=== PATIENT | male | born 1960 | race Caucasian/White ===

== ENCOUNTER 2020-07-18 08:59 | Emergency (ER) | payer BC, SELFPAY ==
--- NOTE | ~2020-07-18 | XR_ITS ---
XR knee RT min 4V 07/18/2020 11:03 INDICATION: Right knee pain PROCEDURE: 4 views right knee COMPARISON: No prior studies for comparison. FINDINGS: Fracture, dislocation or subluxation is not identified. No significant joint effusion. The soft tissues appear within normal limits. No foreign bodies are identified. IMPRESSION: 1: NO ACUTE BONE OR JOINT ABNORMALITY IDENTIFIED. Reviewed, dictated and finalized at location A. ULATION CHEMIST
--- NOTE | ~2020-07-18 | US_ITS ---
EXAMINATION:US venous doppler LE RT INDICATION:Calf pain TECHNIQUE: Multiple grayscale, color flow and Doppler images of the right lower extremity deep venous systems were obtained and reviewed. COMPARISON:No prior studies for comparison. FINDINGS: The common femoral, superficial femoral and popliteal veins demonstrate normal respiratory variation, augmentation and compressibility. Color flow is also seen within the posterior tibial, pe roneal, greater saphenous and profunda veins. IMPRESSION: 1: No lower extremity deep venous thrombosis. Reviewed, dictated and finalized at location A. [employer]OR PAID [employer]IA
--- NOTE | ~2020-07-18 | CT_ITS ---
EXAMINATION: CT brain wo con DATE: 07/18/2020 09:46 INDICATION: Dizziness. TECHNIQUE: Computed tomography (CT) of the head was performed without intravenous contrast. The mA wa s adjusted according to patient size. Iterative reconstruction technique was employed. The dose-lengt h product was 605.33 mGy-cm. COMPARISON: None FINDINGS: There is no intracranial hemorrhage, acute infarction, or abnormal intracranial mass lesion . There are scattered areas of low attenuation in the cerebral white matter. The ventricles are kallie l in size. The orbits are normal. There is mild mucosal thickening in the paranasal sinuses. The mast oid air cells are normal. IMPRESSION: 1. Mild nonspecific cerebral white matter disease, which likely represents chronic small vessel ische jb disease. Reviewed, dictated and finalized at location A. ER SUPERIOR IMPRESSION: 1. 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
--- NOTE | 2020-07-18 09:06 | ECG_ITS ---
Measurements Intervals [place] Rate: 82 P: 56 NM: 158 QRS: 95 QRSD: 109 T: 52 QT: 380 QTc: 445 Interpretive Statements SINUS RHYTHM RIGHT AXIS DEVIATION DELAYED PRECORDIAL R/S TRANSITION BASELINE ARTIFACT- I, II, V6 BORDERLINE ECG Electronically Signed On 07-18-2020 9:18:20 [employer] by Dhruv Mac D.O.
[2020-07-18 09:15] LABS: Glucose Point of Care 136 (65-105)
--- NOTE | 2020-07-18 09:15 | PC.NURSE ---
Blood glucose was 136 at 09:13
[2020-07-18 09:17] VITALS: BP 167/90; PULSE 83; RESP 18; TEMP 36.4; TEMP 36.8; O2SAT 97
[2020-07-18 09:24] LABS: Basophils Absolute Auto 0.2 K/mm3 (0.0-0.1); Basophils Percent Auto 1.3 % (0.2-1.2); Eosinophils Absolute Auto 0.2 K/mm3 (0-0.3); Eosinophils Percent Auto 2.2 % (0-4.4); Hematocrit 44.9 % (42.0-52.0); Hemoglobin 15.3 g/dL (14.0-18.0); Immature Granulocyte Absolute 0.04 K/mm3 (0.00-0.031); Immature Granulocyte Percent A 0.4 % (0-0.5); Lymphocytes Absolute Auto 2.44 K/mm3 (0.9-3.2); Lymphocytes Percent Auto 21.9 % (18.3-44.2); Mean Corpuscular HGB Conc 34.1 g/dl (32-36); Mean Corpuscular Hemoglobin 30.2 pg (26-34); Mean Corpuscular Volume 88.6 fl (80-100); Mean Platelet Volume 8.4 fl (7.4-10.4); Monocytes Absolute Auto 0.9 K/mm3 (0.1-0.6); Neutrophils Absolute Auto 7.4 K/mm3 (1.3-6.7); Neutrophils Percent Auto 66.2 % (45.5-73.1); Platelet Count Result 281 k/mm3 (150-375); Red Blood Count 5.07 M/mm3 (4.6-6.20); White Blood Count 11.1 K/mm3 (4.5-10.0)
--- NOTE | 2020-07-18 09:25 | ED.GENADULT ---
HPI - General Adult General Chief complaint: Neuro Symptoms/Deficit Stated complaint: DIZZY, RT LEG FEELS DIFFERENT Time Seen by Provider: 07/18/20 09:09 Source: RN notes reviewed History of Present Illness HPI narrative: Patient presents to emergency department from home for multiple complaints. Patient states that for the past 3 days he has been having intermittent episodes of feeling lightheaded. States the episodes last several minutes then resolve he denies any other neurologic deficits with these other than sometimes feeling out of body states currently has no dizziness she denies any numbness or tingling in the extremities and denies any facial droop or trouble speaking. Patient states also over the past 2 days he has had pain over his right medial calf going up into his right medial thigh he denies any trauma or injury states pain will increase with extension of the knee he has any fevers or chills chest pain shortness of breath abdominal pain nausea vomiting diarrhea or any other symptoms Review of Systems Review of Systems: Narrative: Gen.: Denies fevers or chills Eyes: Denies eye pain or visual change ENT: Denies congestion Respiratory: Denies shortness of breath or cough CV: Denies chest pain or palpitations GI: Denies abdominal pain nausea, emesis or diarrhea denies burning, urgency, frequency or hematuria Musculoskeletal: Reports right leg pain Neuro: See HPI Skin: Denies rash Except as documented, all other systems reviewed and negative [facility] Past Medical History Medical History (Updated 07/18/20 @ 12:34 by Jonathan Walker DO) Patient denies significant medical history Social History Social History (Updated 07/18/20 @ 12:29 by Jonathan Walker DO) Smoking status: Never smoker Exam Narrative: Exam Narrative: APPEARANCE: No acute distress, nontoxic, resting in bed HEENT: Normocephalic, atraumatic, OMM, EYES: PERRL, EOMI NECK: Supple, nontender, full range of motion without pain, no meningismus RESPIRATORY: No respiratory distress, clear to auscultation bilaterally with no rhonchi wheezing or rales CARDIOVASCULAR: RRR s murmur ABDOMINAL: Soft, nontender, nondistended MUSCULOSKELETAL: Moves all extremities. No clubbing, cyanosis or edema. Tender to palpation of the right medial distal thigh right medial knee and right medial calf no swelling no overlying erythema or ecchymosis full flexion-extension of the right knee with pain with full extension no tenderness of the ankle or hip dorsalis pedis pulse 2+ neurovascular intact NEURO: A and O ?3, following commands, speech normal, cranial nerves II through XII grossly intact,muscle strength 5 out of 5 bilateral upper and lower extremities SKIN:: Warm, dry. Normal Color PSYCHIATRIC: Normal affect/mood Course Course Emergency Course: Patient denies any neurological symptoms while in ED Discussed with patient results of workup and diagnosis. Discussed need for follow-up with primary care, proper use of medication, and reasons to return to the emergency department. Patient understands and agrees to current treatment plan Vital Signs Vital signs: Vital Signs Temperature 98.2 F 07/18/20 09:17 Pulse Rate 83 07/18/20 09:17 Respiratory Rate 18 07/18/20 09:17 Blood Pressure 167/90 H 07/18/20 09:17 Pulse Oximetry 97 07/18/20 09:17 Temperature 98.2 F 07/18/20 09:17 Pulse Rate 92 07/18/20 10:43 Respiratory Rate 18 07/18/20 10:43 Blood Pressure 119/61 07/18/20 10:43 Pulse Oximetry 99 07/18/20 10:43 Medical Decision Making [facility] Narrative Medical decision making narrative: Patient with leg pain of right medial leg Signs of infection no blood clot seen on ultrasound pain worse with movement suspect muscle strain patient also with intermittent episodes of dizziness CT scan shows no acute process lab work was within normal limits patient hydrated in ED will discharge with follow-up with PCP Vital Signs Vital Signs: Vital Signs Te
[2020-07-18 09:34] LABS: INR 0.9; Prothrombin Time 12.7 Seconds (11.1-14.7)
[2020-07-18 09:35] LABS: Partial Thromboplastin Time 27.4 SECONDS (22.3-36.8)
[2020-07-18 09:39] LABS: Anion Gap 8 mmol/L (8-16); Blood Urea Nitrogen 11 mg/dL (9-20); Calcium 9.1 mg/dL (8.4-10.2); Carbon Dioxide 25 mmol/L (22-30); Chloride 103 mmol/L (98-107); Estimated CRCL calculation 104 ml/min; Estimated Glomerular Filt Rate > 60; Glucose 119 mg/dL (75-110); Potassium 4.1 mmol/L (3.4-5.0); Sodium 136 mmol/L (137-145)
[2020-07-18 09:50] LABS: Troponin I < 0.012 ng/mL (0.000-0.034)
[2020-07-18 10:18] VITALS: BP 125/77; PULSE 68
[2020-07-18 10:19] VITALS: BP 124/84; PULSE 73
[2020-07-18 10:20] VITALS: BP 133/85; PULSE 74
[2020-07-18 10:43] VITALS: BP 119/61; PULSE 92; RESP 18; O2SAT 99
[2020-07-18 12:35] VITALS: BP 142/84; PULSE 82; RESP 16; O2SAT 97
== END 2020-07-18 12:54 | disposition home or self-care (01) ==
PROVIDERS: Emergency Provider Emergency Medicine; PCP Family Medicine
DX: S86.111A Strain of other muscle(s) and tendon(s) of posterior muscle group at lower leg level, right leg, initial encounter (principal); X58.XXXA Exposure to other specified factors, initial encounter
CPT/HCPCS: 36415; 70450; 73564; 80048; 82948; 84484; 85025; 85610; 85730; 93005; 93971; 99284

== ENCOUNTER 2021-05-01 03:32 | Emergency (ER) | payer BC, SELFPAY ==
[2021-05-01] VITALS (19 sets, daily range): BP systolic 112–135; BP diastolic 65–83; PULSE 62–84; RESP 12–21; TEMP 36.4; O2SAT 95–98
--- NOTE | ~2021-05-01 | CT_ITS ---
EXAMINATION: CT abdomen pelvis w con DATE: 05/01/2021 05:28 INDICATION: Generalized abdominal pain. Nausea and vomiting. TECHNIQUE: Computed tomography (CT) of the abdomen and pelvis was performed with 100 mL Omnipaque 350 intravenous contrast. Automated exposure control and iterative reconstruction technique were employe d. The dose-length product was 547.35 mGy-cm. COMPARISON: None. FINDINGS: The visualized portions of the lung bases demonstrate mild atelectasis. There is a small ri ght posterior diaphragmatic hernia containing fat. No pleural effusion. The heart size is normal. No pericardial effusion. There are coronary artery calcifications. There are cysts in the liver measurin g up to 3.0 cm. The gallbladder, spleen, pancreas, adrenal glands, and kidneys are normal. The prosta te is mildly enlarged. There is diverticulosis of the colon without evidence of diverticulitis. The a ppendix is not visualized. There is desiccated stool in the ileum. There is an anastomosis in small b owel. There is a 3.0 cm fusiform aneurysm of infrarenal aorta. There is fat stranding at L2-L3 betwee n the spine and aorta. There are no pathologically enlarged lymph nodes. There is no free intraperito kennedy fluid. There are changes of ventral hernia repair. There is severe lower lumbar spondylosis. IMPRESSION: 1. 3.0 cm fusiform aneurysm of infrarenal aorta. Fat stranding at L2-L3 between the spine and aorta, consistent with inflammation. The differential diagnosis includes aortic leak/rupture. Reviewed, dictated and finalized at location A.
[2021-05-01 04:13] LABS: Basophils Absolute Auto 0.1 K/mm3 (0.0-0.1); Basophils Percent Auto 0.8 % (0.2-1.2); Eosinophils Percent Auto 0.2 % (0-4.4); Hematocrit 42.8 % (42.0-52.0); Hemoglobin 14.7 g/dL (14.0-18.0); Immature Granulocyte Absolute 0.08 K/mm3 (0.00-0.031); Immature Granulocyte Percent A 0.6 % (0-0.5); Lymphocytes Absolute Auto 1.19 K/mm3 (0.9-3.2); Lymphocytes Percent Auto 8.7 % (18.3-44.2); Mean Corpuscular HGB Conc 34.3 g/dl (32-36); Mean Corpuscular Hemoglobin 30.8 pg (26-34); Mean Corpuscular Volume 89.7 fl (80-100); Mean Platelet Volume 8.6 fl (7.4-10.4); Monocytes Absolute Auto 0.6 K/mm3 (0.1-0.6); Neutrophils Absolute Auto 11.7 K/mm3 (1.3-6.7); Neutrophils Percent Auto 85.7 % (45.5-73.1); Platelet Count Result 317 k/mm3 (150-375); Red Blood Count 4.77 M/mm3 (4.6-6.20); Red Cell Distribution Width 13.2 % (11.5-14.5); White Blood Count 13.6 K/mm3 (4.5-10.0)
[2021-05-01 04:55] LABS: Alanine Aminotransferase 15 U/L (4-50); Albumin Level 4.4 g/dL (3.5-5.1); Alkaline Phosphatase 108 U/L (38-126); Anion Gap 6 mmol/L (8-16); Aspartate Amino Transferase 21 U/L (17-59); Bilirubin,Total 0.6 mg/dL (0.2-1.3); Blood Urea Nitrogen 18 mg/dL (9-20); Calcium 9.8 mg/dL (8.4-10.2); Carbon Dioxide 26 mmol/L (22-30); Chloride 102 mmol/L (98-107); Estimated Glomerular Filt Rate > 60; Glucose 207 mg/dL (65-110); Lipase 74 U/L (23-300); Sodium 134 mmol/L (137-145)
--- NOTE | 2021-05-01 05:00 | ED.ABDPAIN ---
HPI - Abdominal Pain General Chief Complaint: Abdominal Pain Stated Complaint: abd pain Time Seen by Provider: 05/01/21 04:53 Source: patient and family Mode of arrival: ambulatory Limitations: no limitations History of Present Illness HPI narrative: This is a 60 year old male who presents for evaluation of mid abdominal pain. He developed pain on Saturday and it has continued to worsen. Pain is constant and it radiates to his back. He states when he tries to lay down he develops worsen pain and he has nausea and vomiting. His last bowel movement was 3 hours ago and it is loose. He reports subjective fever and chills. He states pain feels similar to previous times he had infected hernia. He reports having hernia repair years ago and he had to have multiple surgeries to remove mesh. His last surgery was 3 years ago . Denies urinary issues. Related Data Home Medications Medication Instructions Recorded Confirmed No Home Medications 05/01/21 05/01/21 Allergies Allergy/AdvReac Type Severity Reaction Status Date / Time silver sulfadiazine Allergy Unknown Verified 05/01/21 03:46 [From [facility]] Review of Systems Review of Systems: All systems reviewed & are unremarkable except as noted in HPI and below PMFSH Past Medical History Medical History (Updated 05/01/21 @ 07:46 by Mago Murray MD) Patient denies significant medical history Surgical History Surgical History (Updated 05/01/21 @ 05:04 by Mago Murray MD) H/O ventral hernia repair Social History Social History (Updated 07/18/20 @ 12:29 by Jonathan Walker DO) Smoking status: Never smoker Exam Const: General: alert Orientation/consciousness: patient oriented x3 Other: appears to be in pain, moanig Resp: Effort & Inspection: normal respiratory effort and no retractions Auscultation: clear to auscultation bilaterally Cardio: Rate: regular rate Rhythm: regular rhythm Heart sounds: no murmurs GI: GI Palp: Yes Soft to palpation, Yes Tenderness to palpation present (GI) (Diffuse), No Guarding due to palpation present (GI) and No Rigid due to palpation Auscultation: Hypoactive bowel sounds present Skin: General skin exam: normal color Rashes: no rashes Neuro: General: patient oriented x3, moves all extremities and CN's II-XI intact bilaterally Psych: Mental Status: mental status grossly normal Affect: normal affect Course Reevaluation(s) Reevaluation #1: I Discussed with patient CT findings and serious ness. HE is agreeable to transfer. He is not hypertensive at this time. Date: 05/01/21 Time: 07:46 Consultations Consultation #1: I spoke with Dr. Pickard of vascular surgery at [facility] who accepts patient to [facility] ER. I also spoke with DR. Huggins in ER Date: 05/01/21 Time: 07:44 Vital Signs Vital signs: Vital Signs Temperature 97.5 F L 05/01/21 03:41 Pulse Rate 68 05/01/21 03:41 Respiratory Rate 17 05/01/21 03:41 Blood Pressure 135/83 05/01/21 03:41 Pulse Oximetry 98 05/01/21 03:41 Temperature 97.5 F L 05/01/21 03:41 Pulse Rate 73 05/01/21 06:45 Respiratory Rate 14 05/01/21 06:45 Blood Pressure 112/65 05/01/21 06:02 Pulse Oximetry 97 05/01/21 05:59 MDM - Abdominal Pain Lab Data Attestation: I reviewed the patient's lab results. Result diagrams: 05/01/21 04:08 05/01/21 04:08 Labs: Lab Results 05/01/21 05/01/21 05/01/21 Range/Units 04:08 04:08 06:17 WBC 13.6 H (4.5-10.0) K/mm3 RBC 4.77 (4.6-6.20) M/mm3 Hgb 14.7 (14.0-18.0) g/dL Hct 42.8 (42.0-52.0) % MCV 89.7 (80-100) fl MCH 30.8 (26-34) pg MCHC 34.3 (32-36) g/dl RDW 13.2 (11.5-14.5) % Plt Count 317 (150-375) k/mm3 MPV 8.6 (7.4-10.4) fl Immature Gran % (Auto) 0.6 H (0-0.5) % Neut % (Auto) 85.7 H (45.5-73.1) % Lymph % (Auto) 8.7 L (18.3-44.2) % [place] % (Auto) 4.0 (2.6-8.5) % Eos % (Auto) 0.2 (0-4.4) % Bas
[2021-05-01] MEDS: ONDANSETRON INJ 4 MG/2 ML VIAL IV PUSH (05:10)
[2021-05-01] MEDS: SODIUM CHLORIDE 0.9% IV 1,000 ML 999 ML IV CONT (05:10)
[2021-05-01] MEDS: HYDROmorphone HCL INJ (*CRX) 1 MG/ML SYR IV PUSH (05:11)
--- NOTE | 2021-05-01 05:13 | PC.NURSE ---
Patient taken to CT.
[2021-05-01 06:29] LABS: Add Urine Microscopic? YES; Appearance Urine Clear (Clear); Bilirubin Urine Negative (Negative); Blood Urine Negative (Negative); Color Urine Straw (Yellow); Glucose Urine UA 2+ mg/dL (Negative); Ketones Urine Negative (Negative); Leukocyte Esterase Ur Negative LEU/UL (Negative); Mucus Urine Rare /lpf; Nitrate Urine Negative (Negative); Protein Urine 1+ mg/dL (Negative); Squamous Epithelial Cell Urine Many /hpf (Few); Urobilinogen Urine Negative mg/dL (<2.0); WBC Urine 0-3 /hpf
[2021-05-01 06:31] LABS: Specific Grav Ur 1.005 (1.001-1.035)
--- NOTE | 2021-05-01 07:44 | PC.NURSE ---
made contact with [facility] to transfer pt to [facility]. Company declined due to shift change and no trucks ready. Per Dr. Murray lights and sirens were called. Osmany nettles 15 minutes.
--- NOTE | 2021-05-01 07:58 | PC.NURSE ---
eugene has arrived and is aware that pt is going to [facility] ER
== END 2021-05-01 08:03 | disposition short-term general hospital (02) ==
PROVIDERS: Emergency Provider General Practice; PCP Family Medicine
DX: I71.3 Abdominal aortic aneurysm, ruptured (principal)
CPT/HCPCS: 36415; 74177; 80053; 81001; 83690; 85025; 96361; 96374; 96375; 99291; J1170; J2405; J7030; Q9967

== ENCOUNTER 2024-10-21 07:11 | Outpatient (CLI) | payer SELFPAY ==
--- NOTE | ~2024-10-21 | XR_ITS ---
EXAM/ PROCEDURE: XR hand RT 2V, XR hand LT 2V - 10/21/2024 07:10 CDT HISTORY: 64 years old Male with Rheumatoid arthritis COMPARISON: None available TECHNIQUE: Two view(s) each FINDINGS/ IMPRESSION: There are no fractures or dislocations. Multiple marginal erosions are seen along the proximal phalan ges, likely early rheumatoid arthritis. Joint space narrowing, subchondral sclerosis, subchondral cys t formation and osteophyte formation, compatible with mild osteoarthritis. Reviewed, dictated and finalized at location A.
--- NOTE | ~2024-10-21 | XR_ITS ---
EXAM/ PROCEDURE: XR foot RT 2V, XR foot LT 2V - 10/21/2024 07:20 CDT HISTORY: 64 years old Male with Rheumatoid arthritis COMPARISON: None available TECHNIQUE: Two view(s) each FINDINGS/ IMPRESSION: There are no fractures or dislocations. Multiple marginal erosions are seen along the metacarpals and proximal phalanges, suggestive of early rheumatoid arthritis. Joint space narrowing, subchondral sclerosis, subchondral cyst formation and osteophyte formation, co mpatible with mild osteoarthritis. Reviewed, dictated and finalized at location A.
== END 2024-10-21 07:12 | disposition home or self-care (01) ==
PROVIDERS: PCP Internal Medicine; Visit Provider Internal Medicine
DX: M06.9 Rheumatoid arthritis, unspecified (principal)
CPT/HCPCS: 73120; 73620